=== PATIENT | male | born 1965 | race Caucasian/White ===

== ENCOUNTER 2020-02-02 07:09 | Inpatient (IN) | payer MEDICAID ==
[2020-01-26 16:31] LABS: BASOPHILS # (AUTO) 0.1 X10'3 (0-0.2); BASOPHILS % (AUTO) 0.7 % (0-1); EOSINOPHILS # (AUTO) 0.5 X10'3 (0-0.9); EOSINOPHILS % (AUTO) 6.8 % (0-6); LYMPHOCYTES # (AUTO) 2.1 X10'3 (1.1-4.8); LYMPHOCYTES % (AUTO) 26.7 % (21-51); MEAN CORPUSCULAR HEMOGLOBIN 31.1 PG (27.0-31.0); MEAN CORPUSCULAR HGB CONC 34.3 g/dL (33.0-36.5); MEAN CORPUSCULAR VOLUME 90.7 FL (78-98); MEAN PLATELET VOLUME 7.7 FL (7.4-10.4); MONOCYTES # (AUTO) 0.9 X10'3 (0-0.9); MONOCYTES % (AUTO) 11.2 % (2-12); NEUTROPHILS # (AUTO) 4.2 X10'3 (1.8-7.7); NEUTROPHILS % (AUTO) 54.6 % (42-75); PRE OP HEMATOCRIT 46.3 % (42.0-52.0); PRE OP HEMOGLOBIN 15.9 g/dL (14.0-17.9); PRE OP PLATELET COUNT 303 X10'3 (140-440); RED CELL DISTRIBUTION WIDTH 13.8 % (11.5-14.5)
[2020-01-26 16:45] LABS: ALBUMIN 4.4 G/DL (3.4-5.0); ALBUMIN/GLOBULIN RATIO 1.1 (1.1-1.5); ALKALINE PHOSPHATASE 110 IU/L (46-116); BLOOD UREA NITROGEN 13 MG/DL (7-18); BUN/CREATININE RATIO 9.8 (5.4-32.0); CALCIUM 9.2 MG/DL (8.5-10.1); CHLORIDE 104 MMOL/L (99-107); CREATININE 1.33 MG/DL (0.60-1.10); PRE OP ALT 46 U/L (30-65); PRE OP ANION GAP 9 (8-16); PRE OP AST 50 U/L (10-37); PRE OP BILIRUB, TOTAL 0.5 MG/DL (0.0-1.0); PRE OP GLUCOSE 105 MG/DL (70-104); PRE OP POTASSIUM 4.1 MMOL/L (3.4-5.1); PRE OP SODIUM 140 MMOL/L (135-145); TOTAL CARBON DIOXIDE 26.7 MMOL/L (24-32); TOTAL PROTEIN 8.4 G/DL (6.4-8.2); eGFR 56 ML/MIN
[~2020-02-02] VITALS: Ht 170.2 cm; Wt 117.9 kg
[2020-02-02] VITALS (17 sets, daily range): BP systolic 100–136; BP diastolic 47–79
[~2020-02-02 07:09] MED LIST: ACET-1025 PO; DICL100G30 TOP; ESOM40CA54 PO; FLO0.4C PO; IBUP-1985 PO; MIRT15TA8 PO; NORMAL SALINE IV ONE; PARO20TA6 PO; TRAM50TA2 PO; TRANEXAMIC ACID IV ONE; ceFAZolin 2gm in dextrose, iso 100 ML IV ONE; famotidine 20mg tablet PO ONE; ringers solution, lacted 1,000 ML IV SCH; vancomycin 1,500 MG in NS 300ml IV soln IV ONE
[2020-02-02] MEDS ORDERED: TRANEXAMIC ACID IV ONE ×2 (08:00→17:30)
[2020-02-02] MEDS ORDERED: NORMAL SALINE IV ONE ×2 (08:00→17:30)
[2020-02-02] MEDS ORDERED: ketorolac trometh. 30mg/ml inj. ONE ×2 (09:41→11:10)
[2020-02-02] MEDS ORDERED: ROPIVAcaine 0.5% (5mg/ml) 30ml vial ONE ×2 (09:42→11:11)
[2020-02-02] MEDS ORDERED: ROPIVAcaine 0.2% (10 MG/5 ML) BOLUS INJECTION INTERSCALE PRN (11:00)
[2020-02-02] MEDS ORDERED: morphine 4 MG/ML inj SYRINge IV PRN (11:00)
[2020-02-02] MEDS ORDERED: fentaNYL/PF 50MCG/1 ML 2ML syringe IV PRN ×2 (11:00)
[2020-02-02] MEDS ORDERED: labetalol 20mg/4ml (5mg/ml) syringe IV PRN (11:00)
[2020-02-02] MEDS ORDERED: hydrALAZINE 20mg/ml inj. IV PRN (11:00)
[2020-02-02] MEDS ORDERED: ringers solution, lacted 1,000 ML IV SCH (11:00)
[2020-02-02] MEDS ORDERED: ondansetron/PF 4mg/2ml inj IV PRN ×2 (11:00→14:30)
[2020-02-02] MEDS ORDERED: ROPIVAcaine 0.2%/PF PUMP/bolus 550 ML INTERSCALE SCH (11:00)
[2020-02-02] MEDS ORDERED: morphine 2 MG/ML inj. syringe IV PRN (11:00)
[2020-02-02] MEDS ORDERED: midazolam 2 mg/2 ml injection ONE (11:08)
[2020-02-02] MEDS ORDERED: fentaNYL /PF 50mcg/ml 5ml ampule ONE (11:09)
[2020-02-02] MEDS ORDERED: ondansetron/PF 4mg/2ml inj ONE (12:21)
[2020-02-02] MEDS ORDERED: propofol inj 20 ML IV ONE (12:21)
[2020-02-02] MEDS ORDERED: LIDOcaine 1%/PF 5ML 10 MG/ML VIAL ONE (12:21)
[2020-02-02] MEDS ORDERED: acetaminophen 325mg tablet PO PRN (14:30)
[2020-02-02] MEDS ORDERED: IBUPROFEN 600 MG PO PRN (14:30)
[2020-02-02] MEDS ORDERED: non-formulary drug (Acetaminophen (Tylenol Extra Strength) 1 TAB) PO PRN (14:30)
[2020-02-02] MEDS ORDERED: magnesium hydroxide 30ml (MOM) UD suspension PO PRN (14:30)
[2020-02-02] MEDS ORDERED: diphenhydrAMINE 25mg capsule PO PRN ×2 (14:30)
[2020-02-02] MEDS ORDERED: pantoprazole 40mg Tablet.DR PO PRN (14:30)
[2020-02-02] MEDS ORDERED: bisacodyl 10mg suppository rectal RC PRN (14:30)
[2020-02-02] MEDS ORDERED: oxyCODONE IR 5mg (immed. release) tablet PO PRN ×2 (14:30)
[2020-02-02] MEDS ORDERED: HYDROmorphone inj. 0.5 MG/0.5 ML DISP.SYRIN IV PRN (14:30)
[2020-02-02] MEDS ORDERED: HYDROmorphone 1 mg/ml syringe IV PRN (14:30)
--- NOTE | 2020-02-02 14:40 | NUR ---
Received from OR via BED , accompanied by Anesthesiologist DR HAJI and report given by Anesthesiolgist. PATIENT SLEEPY BUT ORIENTED X4, DENIES PAIN, V/S STABLE, NEUROVASCULAR CHECKS INTACT, 18G PIV RUE, SCD ON, DRESSING TO LEFT SHOULDER CDI WITH COLD POWDER PACK AND SLING AND ON Q BALL AT 4ML/HR.
--- NOTE | 2020-02-02 15:40 | NUR ---
PATIENT SLEEPY BUT ORIENTED X4, DENIES PAIN, V/S STABLE, NEUROVASCULAR CHECKS INTACT, 18G PIV RUE, SCD ON, DRESSING TO LEFT SHOULDER CDI WITH COLD POWDER PACK AND SLING AND ON Q BALL AT 4ML/HR. patient taken to 4011a and report given to orthopedic physician assistant who has taken over patient care.
[2020-02-02] MEDS: traMADol 50MG tablet PO SCH ×2 (16:12→21:22)
[2020-02-02] MEDS: ceFAZolin 1GM/D5W- ADD-VANTAGE 50 ML IV SCH ×2 (16:13→23:41)
[2020-02-02] MEDS ORDERED: vancomycin/NS 1 GM ADD-VANTAGE 250 ML IV SCH (20:00)
[2020-02-02] MEDS: acetaminophen 325mg tablet PO SCH (20:24)
[2020-02-02] MEDS: potassium cl 20mEq in 1/2 NS 1,000 ML IV SCH ×2 (20:29→22:30)
[2020-02-02] MEDS ORDERED: sennosides 8.6mg tablet PO SCH (21:00)
[2020-02-02] MEDS ORDERED: mirtazapine 15mg tablet PO SCH (21:00)
[2020-02-03] MEDS: acetaminophen 325mg tablet PO SCH ×2 (01:50→08:45)
[2020-02-03 02:00] VITALS: BP 121/61
[2020-02-03 06:00] VITALS: BP 84/53
[2020-02-03] MEDS: potassium cl 20mEq in 1/2 NS 1,000 ML IV SCH (06:07)
--- NOTE | 2020-02-03 06:37 | NUR ---
Report given to Margarita ROBLES.
[2020-02-03] MEDS ORDERED: PARoxetine 20mg tablet PO SCH (08:00)
[2020-02-03] MEDS ORDERED: tamsulosin 0.4mg capsule PO SCH (08:00)
[2020-02-03] MEDS ORDERED: aspirin 325mg tablet PO SCH (08:30)
[2020-02-03] MEDS: traMADol 50MG tablet PO SCH (08:46)
[2020-02-03 08:57] LABS: BASOPHILS # (AUTO) 0.1 X10'3 (0-0.2); BASOPHILS % (AUTO) 0.5 % (0-1); EOSINOPHILS % (AUTO) 0 % (0-6); HEMATOCRIT 36.9 % (42.0-52.0); HEMOGLOBIN 12.7 g/dl (14.0-17.9); LYMPHOCYTES # (AUTO) 1.3 X10'3 (1.1-4.8); MEAN CORPUSCULAR HEMOGLOBIN 31.8 PG (27.0-31.0); MEAN CORPUSCULAR HGB CONC 34.5 g/dL (33.0-36.5); MEAN CORPUSCULAR VOLUME 92.1 FL (78-98); MEAN PLATELET VOLUME 7.3 FL (7.4-10.4); MONOCYTES # (AUTO) 0.7 X10'3 (0-0.9); MONOCYTES % (AUTO) 5.2 % (2-12); NEUTROPHILS # (AUTO) 12.1 X10'3 (1.8-7.7); NEUTROPHILS % (AUTO) 85.3 % (42-75); PLATELET COUNT 261 X10'3 (140-440); RED BLOOD COUNT 4.01 X10'6 (4.70-6.10); RED CELL DISTRIBUTION WIDTH 13.5 % (11.5-14.5); WHITE BLOOD COUNT 14.2 X10'3 (4.5-11.0)
[2020-02-03 09:07] LABS: ANION GAP 10 (8-16); CHLORIDE 102 MMOL/L (99-107); POTASSIUM 4.1 MMOL/L (3.5-5.1); SODIUM 135 MMOL/L (135-145); TOTAL CARBON DIOXIDE 23.3 MMOL/L (24-32)
[2020-02-03 10:00] VITALS: BP 114/70
[2020-02-03] MEDS ORDERED: ASPI-1264 PO (11:22)
[2020-02-03] MEDS ORDERED: celeCOXIB 100mg capsule PO SCH (20:00)
[2020-02-04] MEDS ORDERED: acetaminophen 325mg tablet PO PRN (14:30)
== END 2020-02-03 11:45 | disposition home or self-care (01) | DRG 322 ==
LOC: PAS IN 07:09 → UNDOADMIN 07:09 → EDSTATUS 10:00 → PAS IN 12:49 → ORTHO 4S 15:50 → PAS IN 15:50
PROVIDERS: ADMIT Orthopaedic Surgery; ATTEND Orthopaedic Surgery
PROC: 0LS40ZZ Reposition Left Upper Arm Tendon, Open Approach (ICD-10-PCS; 2020-02-02)
PROC: 3E0T3BZ Introduction of Anesthetic Agent into Peripheral Nerves and Plexi, Percutaneous Approach (ICD-10-PCS; 2020-02-02)
PROC: 0RRK0JZ Replacement of Left Shoulder Joint with Synthetic Substitute, Open Approach (ICD-10-PCS; principal; 2020-02-02 11:45)
DX: M19.012 Primary osteoarthritis, left shoulder (principal); D50.0 Iron deficiency anemia secondary to blood loss (chronic); G89.29 Other chronic pain; M65.9 Synovitis and tenosynovitis, unspecified; M75.22 Bicipital tendinitis, left shoulder
CPT/HCPCS: 36415; 80051; 80053; 82948; 85025; 87081; 87635; 97110; 97116; 97161; 97530; A4215; A4565; A4618; A7000; A7526; C1713; C1776; G0378; J0690; J1885; J2250; J2405; J2704; J2795; J3010; J3370; J3480; J7040; J7120